=== PATIENT | male | born 1935 | race Two or more races ===

== ENCOUNTER 2024-11-11 19:34 | Emergency (ER) | payer OTHER ==
[~2024-11-11] VITALS: Ht 162.6 cm; Wt 59.0 kg
[2024-11-11 19:36] VITALS: TEMP 99.2
[2024-11-11] MEDS ORDERED: CEFTRIAXONE 1GM BAG (ER ONLY) 50 ML IV ONE (19:58)
[2024-11-11] MEDS: IV NS 0.9% 1,000 ML BAG IV ONE (20:12)
[2024-11-11] MEDS: CEFTRIAXONE 1GM BAG (ER ONLY) 50 ML IV ONE (20:12)
[2024-11-11 20:18] LABS: PLATELET COUNT (AUTO) 188 K/uL (150-450); RED BLOOD CELL COUNT(AUTO) 4.10 MIL/uL (4.5-6.0); RED CELL DISTRIBUTION WIDTH 14.6 % (11.5-15.0); WHITE BLOOD COUNT (AUTO) 23.4 K/uL (4.3-11.0)
[2024-11-11 20:31] LABS: INR 1.0 (0.91-1.10)
[2024-11-11 20:33] LABS: LACTIC ACID 1.9 mmol/L (0.4-2.0)
[2024-11-11 20:41] LABS: CALCIUM, SERUM 9.1 mg/dL (8.5-10.1); CREATININE 1.1 mg/dL (0.6-1.3); SODIUM SERUM 140 mmol/L (136-145); UREA NITROGEN, BLOOD 20 mg/dL (7-18)
[2024-11-11 20:47] LABS: ASPARTATE AMINOTRANSFERASE 21 U/L (15-37); TOTAL PROTEIN, SERUM 7.3 g/dL (6.4-8.2)
[2024-11-11 21:22] LABS: APPEARANCE,URINE CLOUDY (CLEAR); BLOOD, URINE 2+ Ery/uL (NEGATIVE); LEUKOCYTE ESTERASE ,URINE 3+ (NEGATIVE); NITRITE, URINE POSITIVE (NEGATIVE); UGLUCOSE NEGATIVE (NEGATIVE)
[2024-11-11 21:25] LABS: BAND % (MANUAL) 2 % (0.0-5.0); LYMPHOCYTES % (MANUAL) 8 % (16-48); MONOCYTES % (MANUAL) 4 % (0-11.0); NEUTROPHILS % (MANUAL) 86 (42-76); PLATELET ESTIMATE ADEQUATE
[2024-11-11 21:31] LABS: ADD URINE CULTURE YES; SQUAMOUS EPITHELIAL CELL,UR 0-2 /HPF (None Seen)
[2024-11-11 23:00] VITALS: BP 120/60; O2SAT 100
== END 2024-11-12 03:16 | disposition short-term general hospital (02) ==
LOC: ER 19:36
DX: N39.0 Urinary tract infection, site not specified (principal); R53.1 Weakness; F03.90 Unspecified dementia, unspecified severity, without behavioral disturbance, psychotic disturbance, mood disturbance, and anxiety; Z20.822 Contact with and (suspected) exposure to COVID-19
CPT/HCPCS: 99285; 96365; 71045; 87426; 93005; 84145; 85027; 80048; 87040 ×2; 87086; 83605; 80076; 85007; 81001; 36415; 84484; 85730; J7030; J0696